=== PATIENT | male | born 1940 | race Caucasian/White ===

== ENCOUNTER 2020-11-24 16:51 | Inpatient (IN) | payer MEDICARE, OTHER ==
[~2020-11-24] VITALS: Ht 177.8 cm; Wt 90.9 kg
[~2020-11-24 16:51] MED LIST: ASPI81TA52 PO; ESOM20CA PO; LEXAPRO; MULTIVIT; NAP220T PO; ST JOHNS WART; VIT D
[2020-11-24 19:26] LABS: BASOPHILS % (AUTO) 0.2 % (0-1); EOSINOPHILS % (AUTO) 0 % (0-6); HEMATOCRIT 40.5 % (42.0-52.0); HEMOGLOBIN 13.5 g/dl (14.0-17.9); LYMPHOCYTES # (AUTO) 0.8 X10'3 (1.1-4.8); LYMPHOCYTES % (AUTO) 7.5 % (21-51); MEAN CORPUSCULAR HGB CONC 33.4 g/dL (33.0-36.5); MEAN PLATELET VOLUME 8.7 FL (7.4-10.4); MONOCYTES # (AUTO) 0.7 X10'3 (0-0.9); MONOCYTES % (AUTO) 6.6 % (2-12); NEUTROPHILS # (AUTO) 8.8 X10'3 (1.8-7.7); NEUTROPHILS % (AUTO) 85.7 % (42-75); PLATELET COUNT 170 X10'3 (140-440); RED CELL DISTRIBUTION WIDTH 17.2 % (11.5-14.5); WHITE BLOOD COUNT 10.3 X10'3 (4.5-11.0)
--- NOTE | 2020-11-24 19:37 | NUR ---
pt has had a ct resulted and Vrad rediologist calling to speak with provider. Pt not yet in room and no provider has signed up for him. Dr. Tavera taking call.
[2020-11-24] MEDS ORDERED: normal saline 1000ml 1,000 ML IV ONE (19:45)
[2020-11-24 19:46] LABS: ALANINE AMINOTRANSFERASE 25 U/L (12-78); ALBUMIN 4.1 G/DL (3.4-5.0); ALBUMIN/GLOBULIN RATIO 1.1 (1.1-1.5); ALKALINE PHOSPHATASE 112 IU/L (46-116); ANION GAP 11 (8-16); ASPARTATE AMINO TRANSFERASE 22 U/L (10-37); BILIRUBIN,TOTAL 1.3 MG/DL (0.1-1.0); BLOOD UREA NITROGEN 17 MG/DL (7-18); BUN/CREATININE RATIO 13.2 (5.4-32.0); CHLORIDE 106 MMOL/L (99-107); CREATININE 1.29 MG/DL (0.60-1.10); GLUCOSE 150 MG/DL (70-104); LIPASE 71 U/L (73-393); POTASSIUM 3.6 MMOL/L (3.5-5.1); SODIUM 142 MMOL/L (135-145); TOTAL CARBON DIOXIDE 24.8 MMOL/L (24-32); TOTAL PROTEIN 7.8 G/DL (6.4-8.2); eGFR 54 ML/MIN
[2020-11-24 19:56] LABS: PARTIAL THROMBOPLASTIN TIME 25 SECONDS (22-32)
[2020-11-24] MEDS ORDERED: morphine 2 MG/ML inj. syringe IV PRN ×2 (21:40)
[2020-11-24] MEDS ORDERED: HYDROcodone/acetaminophen 10/325mg tab PO PRN (21:40)
[2020-11-24] MEDS ORDERED: ondansetron/PF 4mg/2ml inj IV PRN (21:40)
[2020-11-24] MEDS ORDERED: acetaminophen 325mg tablet PO PRN ×2 (21:40)
[2020-11-24] MEDS ORDERED: HYDROcodone/acetaminophen 5mg/325mg tablet PO PRN (21:40)
[2020-11-24] MEDS ORDERED: LOSA100T57 PO (21:57)
[2020-11-24] MEDS ORDERED: APIX5TAB3 PO (21:57)
[2020-11-24] MEDS ORDERED: SOTA80TA73 PO (21:57)
[2020-11-24] MEDS ORDERED: AMLO5TAB16 PO (21:57)
[2020-11-24] MEDS ORDERED: ESOM20CA PO (22:05)
[2020-11-24 23:35] LABS: CLARITY,URINE CLEAR (Clear); COLOR,URINE AMBER (Yellow); PH,URINE 5.5 (4.8-8.0); UA COLLECTION TYPE URINAL
[2020-11-24 23:36] LABS: GLUCOSE, URINE NEGATIVE (Neg); KETONES,URINE 80 mg/dl (Neg); LEUKOCYTE ESTERASE ,URINE NEGATIVE (Neg); NITRITES, URINE NEGATIVE (Neg); OCCULT BLOOD,URINE NEGATIVE (Neg); PROTEIN,URINE 30 mg/dl (Neg); UROBILINOGEN,URINE 0.2 E.U/dL (0.2-1.0)
[2020-11-24 23:44] LABS: BACTERIA,URINE NONE SEEN /HPF (Neg); MUCUS STRANDS FEW /LPF (Neg); RBC,URINE NONE SEEN /HPF (0-2); SQUAMOUS EPITHELIAL CELL,UR FEW /LPF (FEW); WBC,URINE 0-4 /HPF (0-4)
[2020-11-25] MEDS: normal saline 1000ml 1,000 ML IV SCH ×3 (00:32→19:30)
[2020-11-25 03:46] LABS: ALANINE AMINOTRANSFERASE 24 U/L (12-78); ALBUMIN 3.5 G/DL (3.4-5.0); ALBUMIN/GLOBULIN RATIO 1.1 (1.1-1.5); ALKALINE PHOSPHATASE 95 IU/L (46-116); ANION GAP 12 (8-16); ASPARTATE AMINO TRANSFERASE 23 U/L (10-37); BILIRUBIN,TOTAL 1.2 MG/DL (0.1-1.0); BLOOD UREA NITROGEN 19 MG/DL (7-18); CALCIUM 9.1 MG/DL (8.5-10.1); CHLORIDE 107 MMOL/L (99-107); CREATININE 1.12 MG/DL (0.60-1.10); GLUCOSE 135 MG/DL (70-104); POTASSIUM 4.2 MMOL/L (3.5-5.1); SODIUM 143 MMOL/L (135-145); TOTAL CARBON DIOXIDE 24.5 MMOL/L (24-32); TOTAL PROTEIN 6.8 G/DL (6.4-8.2); eGFR 63 ML/MIN
[2020-11-25 03:47] LABS: BASOPHILS % (AUTO) 0.2 % (0-1); EOSINOPHILS % (AUTO) 0 % (0-6); HEMATOCRIT 40.3 % (42.0-52.0); HEMOGLOBIN 12.8 g/dl (14.0-17.9); LYMPHOCYTES # (AUTO) 1.2 X10'3 (1.1-4.8); LYMPHOCYTES % (AUTO) 12.5 % (21-51); MEAN CORPUSCULAR HEMOGLOBIN 26.6 PG (27.0-31.0); MEAN CORPUSCULAR HGB CONC 31.8 g/dL (33.0-36.5); MEAN CORPUSCULAR VOLUME 83.8 FL (78-98); MEAN PLATELET VOLUME 9.3 FL (7.4-10.4); MONOCYTES # (AUTO) 0.7 X10'3 (0-0.9); MONOCYTES % (AUTO) 7.5 % (2-12); NEUTROPHILS # (AUTO) 7.3 X10'3 (1.8-7.7); NEUTROPHILS % (AUTO) 79.8 % (42-75); PLATELET COUNT 165 X10'3 (140-440); RED CELL DISTRIBUTION WIDTH 17.1 % (11.5-14.5); WHITE BLOOD COUNT 9.2 X10'3 (4.5-11.0)
[2020-11-25] MEDS ORDERED: ciprofloxacin lact 400MG/200ML 200 ML IV SCH (08:00)
[2020-11-25] MEDS ORDERED: apixaban 5mg tablet PO SCH (08:00)
[2020-11-25] MEDS ORDERED: heparin, porcine 5000 units/ml vial SQ SCH (08:00)
[2020-11-25] MEDS ORDERED: metroNIDAZOLE-Flagyl 500mg/NS 100 ML IV SCH (08:00)
[2020-11-25] MEDS: sotalol 80mg tablet PO SCH ×2 (09:35→20:08)
[2020-11-25] MEDS: pantoprazole 40mg Tablet.DR PO SCH (09:36)
[2020-11-25] MEDS: amLODIPine 5mg tablet PO SCH (09:36)
[2020-11-25] MEDS: losartan 50mg tablet PO SCH (09:50)
[2020-11-25 10:35] VITALS: BP 147/79
--- NOTE | 2020-11-25 10:35 | NUR ---
PATIENT RECIEVED FROM ER, A&OX4, DENIES PAIN, V/S WNL, CSM INTACT NG TO LEFT NARES HOOKS TO INTERMITTENT LWS. RIGHT AC 20G PIV
[2020-11-25] MEDS ORDERED: diatrozoate meglu/diatrozoate sod (37% iodine) 120ML oral solution PO ONE (12:10)
--- NOTE | 2020-11-25 12:56 | NUR ---
PATIENT HAD MODERATE LIQUID STOOL WITH SOME SMALLER SOLID CHUNKS WITH NO ABNORMAL DISCOLORATION
[2020-11-25 13:38] VITALS: BP 152/73
--- NOTE | 2020-11-25 16:11 | NUR ---
ANOTHER SUCCESS! THE PATIENT HAS POOPED ! YEAH. IT WAS A LOOSE MIX WITH FIRM STOOL LIKE ALPO DOG FOOD. Addendum: 11/25/20 at 1621 by Tobin Leonard RN VOID PREVIOUS NOTE, STOOL WAS MODERATE LOOSE MIX STOOL
--- NOTE | 2020-11-25 16:43 | NUR ---
PATIENT HAD ANOTHER POOP SIMILAR TO LAST POOP WITH SAME CONSISTENCY W/ DARK BROWN
[2020-11-25 17:23] VITALS: BP 141/78
--- NOTE | 2020-11-25 17:25 | NUR ---
PATIENT XRAY COMPLETED
--- NOTE | 2020-11-25 18:40 | NUR ---
PATIENT SURGERY CANCELLED, REPORT CALLED TO TELE. NG TUBE D/C PER DR HILL VERBAL ORDER. PATIENT DOING WELL, V/S STABLE. PATIENT TAKEN TO PCU WITH ALL BELONGINGS AND RN HAS TAKEN OVER PATIENT CARE.
[2020-11-25 19:00] VITALS: BP 146/74
--- NOTE | 2020-11-25 19:05 | NUR ---
REPORT GIVEN TO RENETTA ULRICH ON PCU. ALL QUESTIONS ANSWERED. PRESENT TO ACCEPT CARE AND ASSESS PATIENT. VSS. DENIES PAIN- ONE BAG OF BELONGINGS SENT WITH PATIENT AND PLACED IN CLOSET OF 3026B BY RENETTA ULRICH. CARE SAFELY TURNED OVER TO RENETTA ULRICH. Addendum: 11/25/20 at 1906 by Brando Whitfield - RENETTA JACKSON Amended: Links added.
--- NOTE | 2020-11-25 19:05 | NUR ---
CARE TURNED OVER TO RENETTA ULRICH. ALL VSS. REPORT CALLED AND ALL QUESTIONS ANSWERED. VSS. DENIES PAIN. AMBULATING WITHOUT INCIDENT. STILL HAVING SMALL BMS. CARE TURNED OVER Addendum: 11/25/20 at 1907 by Brando Whitfield - RENETTA JACKSON Amended: Links added.
[2020-11-25 22:00] VITALS: BP 141/79
[2020-11-26 02:00] VITALS: BP 134/66
[2020-11-26] MEDS: normal saline 1000ml 1,000 ML IV SCH ×2 (03:40→05:44)
[2020-11-26 06:00] VITALS: BP 127/65
[2020-11-26 06:01] LABS: BASOPHILS % (AUTO) 0.6 % (0-1); EOSINOPHILS # (AUTO) 0.1 X10'3 (0-0.9); EOSINOPHILS % (AUTO) 2.4 % (0-6); HEMOGLOBIN 11.4 g/dl (14.0-17.9); LYMPHOCYTES # (AUTO) 1.5 X10'3 (1.1-4.8); LYMPHOCYTES % (AUTO) 24.8 % (21-51); MEAN CORPUSCULAR HEMOGLOBIN 27.3 PG (27.0-31.0); MEAN CORPUSCULAR HGB CONC 32.6 g/dL (33.0-36.5); MEAN CORPUSCULAR VOLUME 83.7 FL (78-98); MEAN PLATELET VOLUME 9.2 FL (7.4-10.4); MONOCYTES # (AUTO) 0.6 X10'3 (0-0.9); MONOCYTES % (AUTO) 9.9 % (2-12); NEUTROPHILS # (AUTO) 3.8 X10'3 (1.8-7.7); NEUTROPHILS % (AUTO) 62.3 % (42-75); PLATELET COUNT 130 X10'3 (140-440); RED BLOOD COUNT 4.19 X10'6 (4.70-6.10); RED CELL DISTRIBUTION WIDTH 17.4 % (11.5-14.5); WHITE BLOOD COUNT 6.1 X10'3 (4.5-11.0)
[2020-11-26 06:20] LABS: ALANINE AMINOTRANSFERASE 17 U/L (12-78); ALBUMIN 2.8 G/DL (3.4-5.0); ALKALINE PHOSPHATASE 80 IU/L (46-116); ANION GAP 7 (8-16); ASPARTATE AMINO TRANSFERASE 19 U/L (10-37); BILIRUBIN,TOTAL 0.8 MG/DL (0.1-1.0); BLOOD UREA NITROGEN 14 MG/DL (7-18); BUN/CREATININE RATIO 14.9 (5.4-32.0); CALCIUM 7.5 MG/DL (8.5-10.1); CHLORIDE 113 MMOL/L (99-107); CREATININE 0.94 MG/DL (0.60-1.10); GLUCOSE 74 MG/DL (70-104); POTASSIUM 3.5 MMOL/L (3.5-5.1); SODIUM 144 MMOL/L (135-145); TOTAL CARBON DIOXIDE 24.2 MMOL/L (24-32); TOTAL PROTEIN 5.6 G/DL (6.4-8.2); eGFR 77 ML/MIN
--- NOTE | 2020-11-26 06:25 | NUR ---
Patient in room PCU 3026. I have received report from sawyer rn and had the opportunity to ask questions and assume patient care.
[2020-11-26] MEDS: losartan 50mg tablet PO SCH (07:12)
[2020-11-26] MEDS: amLODIPine 5mg tablet PO SCH (07:13)
[2020-11-26] MEDS: sotalol 80mg tablet PO SCH (07:13)
[2020-11-26] MEDS: pantoprazole 40mg Tablet.DR PO SCH (07:13)
[2020-11-26 11:12] VITALS: BP 126/65
--- NOTE | 2020-11-26 13:33 | NUR ---
Patient discharged at 1315. Belongings sent with patient, iv removed, no complications. Pt wheeled down to entrance via wheelchair. Pt discharged in stable condition to home via private vehicle.
== END 2020-11-26 13:15 | disposition home or self-care (01) | DRG 389 ==
LOC: ER 16:51 → ED HOLD 21:42 → PCU 3S 11-25 19:00
PROVIDERS: ADMIT Internal Medicine; ATTEND Family Medicine
PROC: 0D9670Z Drainage of Stomach with Drainage Device, Via Natural or Artificial Opening (ICD-10-PCS; principal; 2020-11-24)
DX: K56.609 Unspecified intestinal obstruction, unspecified as to partial versus complete obstruction (principal); I48.20 Chronic atrial fibrillation, unspecified; N17.9 Acute kidney failure, unspecified; K21.9 Gastro-esophageal reflux disease without esophagitis; K59.00 Constipation, unspecified; Z20.822 Contact with and (suspected) exposure to COVID-19; E80.7 Disorder of bilirubin metabolism, unspecified; N18.30 Chronic kidney disease, stage 3 unspecified; I12.9 Hypertensive chronic kidney disease with stage 1 through stage 4 chronic kidney disease, or unspecified chronic kidney disease; Z87.891 Personal history of nicotine dependence; Z90.79 Acquired absence of other genital organ(s)
CPT/HCPCS: 36415; 74018; 74176; 80053; 81001; 83605; 83690; 85025; 85610; 85730; 87040; 87081; 87635; 93005; 97116; 97161; 97530; 99285; G0378; J0744; J3490; J7030; Q9963

== ENCOUNTER 2021-04-28 05:36 | Emergency (ER) | payer MEDICARE, OTHER ==
[~2021-04-28] VITALS: Ht 170.2 cm; Wt 90.9 kg
[~2021-04-28 05:36] MED LIST changes: +AMLO5TAB16 PO; +APIX5TAB3 PO; -ASPI81TA52 PO; -LEXAPRO; +LOSA100T57 PO; -MULTIVIT; -NAP220T PO; +SOTA80TA73 PO; -ST JOHNS WART; -VIT D
[2021-04-28 05:42] VITALS: BP 160/84
== END 2021-04-28 06:30 | disposition home or self-care (01) ==
LOC: ER 05:37
DX: N50.1 Vascular disorders of male genital organs (principal); I10 Essential (primary) hypertension; Z79.899 Other long term (current) drug therapy
CPT/HCPCS: 99281

== ENCOUNTER 2023-12-27 20:28 | Inpatient (IN) | payer MEDICARE, OTHER ==
[~2023-12-27] VITALS: Ht 170.2 cm; Wt 92.5 kg
[~2023-12-27 20:28] MED LIST changes: -LOSA100T57 PO; +LOSA100T58 PO
[2023-12-27 20:56] LABS: BASOPHILS # (AUTO) 0.1 X10'3 (0-0.2); BASOPHILS % (AUTO) 0.4 % (0-1); EOSINOPHILS # (AUTO) 0.1 X10'3 (0-0.9); EOSINOPHILS % (AUTO) 0.8 % (0-6); HEMATOCRIT 48.5 % (42.0-52.0); HEMOGLOBIN 16.5 g/dl (14.0-17.9); LYMPHOCYTES # (AUTO) 1.3 X10'3 (1.1-4.8); LYMPHOCYTES % (AUTO) 11.4 % (21-51); MEAN CORPUSCULAR HEMOGLOBIN 32.8 PG (27.0-31.0); MEAN CORPUSCULAR VOLUME 96.5 FL (78-98); MEAN PLATELET VOLUME 8.9 FL (7.4-10.4); MONOCYTES # (AUTO) 0.7 X10'3 (0-0.9); MONOCYTES % (AUTO) 6.4 % (2-12); NEUTROPHILS # (AUTO) 9.3 X10'3 (1.8-7.7); PLATELET COUNT 141 X10'3 (140-440); RED BLOOD COUNT 5.03 X10'6 (4.70-6.10); RED CELL DISTRIBUTION WIDTH 13.4 % (11.5-14.5); WHITE BLOOD COUNT 11.5 X10'3 (4.5-11.0)
[2023-12-27 21:13] LABS: ALANINE AMINOTRANSFERASE 24 U/L (12-78); ALBUMIN 3.8 G/DL (3.4-5.0); ALBUMIN/GLOBULIN RATIO 1.1 (1.1-1.5); ALKALINE PHOSPHATASE 94 IU/L (46-116); ANION GAP 6 (8-16); ASPARTATE AMINO TRANSFERASE 20 U/L (10-37); BLOOD UREA NITROGEN 16 MG/DL (7-18); BUN/CREATININE RATIO 16.7 (10.0-20.0); CALCIUM 9.7 MG/DL (8.5-10.1); CHLORIDE 104 MMOL/L (99-107); CREATININE 0.96 MG/DL (0.60-1.10); GLUCOSE 146 MG/DL (70-104); POTASSIUM 3.7 MMOL/L (3.5-5.1); SODIUM 137 MMOL/L (135-145); TOTAL CARBON DIOXIDE 26.6 MMOL/L (24-32); TOTAL PROTEIN 7.4 G/DL (6.4-8.2); eCRCL 55 ML/MIN; eGFR 75 ML/MIN
[2023-12-27 21:19] LABS: LIPASE 26 U/L (16-77); PRO BRAIN NATRIURETIC PEPTIDE 122 PG/ML (0-450)
[2023-12-27] MEDS: ondansetron/PF 4mg/2ml inj IV ONE (22:15)
[2023-12-27] MEDS: morphine 4 MG/ML inj SYRINge IV ONE (22:16)
[2023-12-27] MEDS: normal saline 1000ml 1,000 ML IV ONE (22:16)
[2023-12-28] VITALS (8 sets, daily range): BP systolic 140–161; BP diastolic 75–87; PULSE 72–89; RESP 16–18; TEMP 97.5–98.8; O2SAT 91–96
[2023-12-28 00:04] LABS: BILIRUBIN,URINE NEGATIVE (Neg); CLARITY,URINE CLEAR (Clear); COLOR,URINE YELLOW (Yellow); GLUCOSE, URINE NEGATIVE (Neg); KETONES,URINE 40 mg/dl (Neg); LEUKOCYTE ESTERASE ,URINE NEGATIVE (Neg); NITRITES, URINE NEGATIVE (Neg); OCCULT BLOOD,URINE TRACE-INTACT (Neg); PH,URINE 6.5 (4.8-8.0); PROTEIN,URINE NEGATIVE (Neg)
[2023-12-28 00:05] LABS: UA COLLECTION TYPE CLN CATCH MIDSTREAM
[2023-12-28] MEDS ORDERED: magnesium Cl slow-release 64mg tablet PO PRN (00:20)
[2023-12-28] MEDS ORDERED: mag hydrox/Alum hydrox/simeth 30ml oral suspension PO PRN (00:20)
[2023-12-28] MEDS ORDERED: magnesium hydroxide 30ml (MOM) UD suspension PO PRN (00:20)
[2023-12-28] MEDS ORDERED: acetaminophen 325mg tablet PO PRN (00:20)
[2023-12-28] MEDS ORDERED: magnesium sulf-water 4G/100mL 100 ML IV PRN (00:20)
[2023-12-28] MEDS ORDERED: potassium Cl 20 mEq SR tablet PO PRN ×2 (00:20)
[2023-12-28] MEDS ORDERED: ondansetron/PF 4mg/2ml inj IV PRN (00:20)
[2023-12-28] MEDS ORDERED: magnesium sulf-water 2g/50mL 50 ML IV PRN (00:20)
[2023-12-28 00:22] LABS: BACTERIA,URINE NONE SEEN /HPF (Neg); MUCUS STRANDS FEW /LPF (Neg); RBC,URINE 0-2 /HPF (0-2); SQUAMOUS EPITHELIAL CELL,UR FEW /LPF (FEW); WBC,URINE 0-4 /HPF (0-4)
[2023-12-28] MEDS ORDERED: ketorolac trometh 15mg/ml vial 15 MG/ML ML IV PRN (00:35)
[2023-12-28] MEDS: hydrALAZINE 20mg/ml inj. IV ONE (01:10)
[2023-12-28] MEDS: CefTRIAXone/D5W-Rocephin 1gm 50 ML IV ONE (01:50)
[2023-12-28 01:51] LABS: APTT 24 SECONDS (22-32); INR 1.1 INR; PROTHROMBIN TIME 11.2 SECONDS (9.0-12.0)
[2023-12-28 01:53] LABS: MAGNESIUM 1.8 MG/DL (1.5-2.4); PHOSPHORUS 2.9 MG/DL (2.3-4.5); POTASSIUM 4.2 MMOL/L (3.5-5.1)
[2023-12-28 02:09] LABS: HEMOGLOBIN A1C 5.3 % (4.5-6.2)
[2023-12-28] MEDS: normal saline 1000ml 1,000 ML IV SCH (03:26)
[2023-12-28] MEDS: K and/or MAG REPLACEMENT MC SCH (08:00)
[2023-12-28] MEDS: docusate sod 100mg capsule PO SCH (08:00)
[2023-12-28] MEDS: pantoprazole 40 MG vial IV SCH (08:26)
[2023-12-28] MEDS: CefTRIAXone/D5W-Rocephin 1gm 50 ML IV SCH (10:37)
[2023-12-28 13:19] LABS: BASOPHILS # (AUTO) 0.1 X10'3 (0-0.2); BASOPHILS % (AUTO) 1.1 % (0-1); EOSINOPHILS % (AUTO) 0.2 % (0-6); HEMOGLOBIN 15.9 g/dl (14.0-17.9); LYMPHOCYTES % (AUTO) 9.8 % (21-51); MEAN CORPUSCULAR HEMOGLOBIN 33.3 PG (27.0-31.0); MEAN CORPUSCULAR HGB CONC 33.9 g/dL (33.0-36.5); MEAN CORPUSCULAR VOLUME 98.2 FL (78-98); MEAN PLATELET VOLUME 10.1 FL (7.4-10.4); MONOCYTES # (AUTO) 0.6 X10'3 (0-0.9); MONOCYTES % (AUTO) 6.4 % (2-12); NEUTROPHILS # (AUTO) 8.1 X10'3 (1.8-7.7); NEUTROPHILS % (AUTO) 82.5 % (42-75); PLATELET COUNT 130 X10'3 (140-440); RED BLOOD COUNT 4.78 X10'6 (4.70-6.10); RED CELL DISTRIBUTION WIDTH 13.6 % (11.5-14.5); WHITE BLOOD COUNT 9.9 X10'3 (4.5-11.0)
[2023-12-28 13:31] LABS: ALANINE AMINOTRANSFERASE 24 U/L (12-78); ALBUMIN 3.3 G/DL (3.4-5.0); ALKALINE PHOSPHATASE 84 IU/L (46-116); ANION GAP 8 (8-16); ASPARTATE AMINO TRANSFERASE 26 U/L (10-37); BLOOD UREA NITROGEN 14 MG/DL (7-18); BUN/CREATININE RATIO 17.9 (10.0-20.0); CALCIUM 8.9 MG/DL (8.5-10.1); CHLORIDE 106 MMOL/L (99-107); CREATININE 0.78 MG/DL (0.60-1.10); GLUCOSE 121 MG/DL (70-104); POTASSIUM 3.9 MMOL/L (3.5-5.1); SODIUM 138 MMOL/L (135-145); TOTAL CARBON DIOXIDE 24.2 MMOL/L (24-32); TOTAL PROTEIN 6.5 G/DL (6.4-8.2); eCRCL 68 ML/MIN; eGFR > 90 ML/MIN
[2023-12-28 13:56] LABS: LARGE PLATELETS FEW; PLATELET ESTIMATE DECREASED
[2023-12-28 13:58] LABS: GIANT PLATELET FEW
[2023-12-28] MEDS: apixaban 5mg tablet PO SCH (20:18)
[2023-12-28] MEDS: sotalol HCl 40mg (1/2 tablet) PO SCH (20:19)
[2023-12-28] MEDS ORDERED: HYDROcodone/acetaminophen 5mg/325mg tablet PO PRN (20:30)
[2023-12-28] MEDS: bisacodyl 10mg suppository rectal RC STA (21:58)
[2023-12-29 04:51] LABS: BASOPHILS % (AUTO) 0.5 % (0-1); EOSINOPHILS # (AUTO) 0.1 X10'3 (0-0.9); EOSINOPHILS % (AUTO) 1.8 % (0-6); LYMPHOCYTES # (AUTO) 1.5 X10'3 (1.1-4.8); LYMPHOCYTES % (AUTO) 21.6 % (21-51); MEAN CORPUSCULAR HEMOGLOBIN 33.3 PG (27.0-31.0); MEAN CORPUSCULAR HGB CONC 34.2 g/dL (33.0-36.5); MEAN CORPUSCULAR VOLUME 97.4 FL (78-98); MONOCYTES # (AUTO) 0.7 X10'3 (0-0.9); MONOCYTES % (AUTO) 9.8 % (2-12); NEUTROPHILS # (AUTO) 4.5 X10'3 (1.8-7.7); NEUTROPHILS % (AUTO) 66.3 % (42-75); PLATELET COUNT 117 X10'3 (140-440); RED BLOOD COUNT 4.51 X10'6 (4.70-6.10); RED CELL DISTRIBUTION WIDTH 13.4 % (11.5-14.5); WHITE BLOOD COUNT 6.8 X10'3 (4.5-11.0)
[2023-12-29 05:03] LABS: ALANINE AMINOTRANSFERASE 20 U/L (12-78); ALBUMIN 2.7 G/DL (3.4-5.0); ALBUMIN/GLOBULIN RATIO 0.9 (1.1-1.5); ALKALINE PHOSPHATASE 76 IU/L (46-116); ANION GAP 6 (8-16); ASPARTATE AMINO TRANSFERASE 21 U/L (10-37); BILIRUBIN,TOTAL 1.5 MG/DL (0.1-1.0); BLOOD UREA NITROGEN 8 MG/DL (7-18); BUN/CREATININE RATIO 10.1 (10.0-20.0); CALCIUM 8.2 MG/DL (8.5-10.1); CHLORIDE 109 MMOL/L (99-107); CREATININE 0.79 MG/DL (0.60-1.10); GLUCOSE 90 MG/DL (70-104); POTASSIUM 3.6 MMOL/L (3.5-5.1); SODIUM 139 MMOL/L (135-145); TOTAL CARBON DIOXIDE 24.3 MMOL/L (24-32); TOTAL PROTEIN 5.7 G/DL (6.4-8.2); eCRCL 67 ML/MIN; eGFR > 90 ML/MIN
[2023-12-29 08:00] VITALS: RESP 18; O2SAT 95
[2023-12-29] MEDS: pantoprazole 40mg Tablet.DR PO SCH (08:39)
[2023-12-29] MEDS: losartan 50mg tablet PO SCH (08:40)
[2023-12-29] MEDS: amLODIPine 5mg tablet PO SCH (08:40)
[2023-12-29 11:00] VITALS: BP 169/87; PULSE 64; RESP 16; TEMP 98.4; O2SAT 94
[2023-12-29 18:00] VITALS: BP 157/84; PULSE 81; RESP 17; TEMP 99.3; O2SAT 95
[2023-12-29 20:00] VITALS: RESP 17; O2SAT 95
[2023-12-29] MEDS: diatr meglu/diatrizoate 30ml oral sol.-(3 dose) bottle PO SCH (21:07)
[2023-12-29 22:00] VITALS: BP 102/63; PULSE 61; RESP 16; TEMP 97.7; O2SAT 94
[2023-12-30 05:22] LABS: ALANINE AMINOTRANSFERASE 16 U/L (12-78); ALBUMIN 2.7 G/DL (3.4-5.0); ALBUMIN/GLOBULIN RATIO 0.9 (1.1-1.5); ALKALINE PHOSPHATASE 71 IU/L (46-116); ANION GAP 8 (8-16); ASPARTATE AMINO TRANSFERASE 18 U/L (10-37); BILIRUBIN,TOTAL 1.3 MG/DL (0.1-1.0); BLOOD UREA NITROGEN 7 MG/DL (7-18); BUN/CREATININE RATIO 8.6 (10.0-20.0); CALCIUM 8.1 MG/DL (8.5-10.1); CHLORIDE 107 MMOL/L (99-107); CREATININE 0.81 MG/DL (0.60-1.10); GLUCOSE 74 MG/DL (70-104); POTASSIUM 3.3 MMOL/L (3.5-5.1); SODIUM 138 MMOL/L (135-145); TOTAL CARBON DIOXIDE 23.3 MMOL/L (24-32); TOTAL PROTEIN 5.8 G/DL (6.4-8.2); eCRCL 66 ML/MIN; eGFR > 90 ML/MIN
[2023-12-30 05:28] LABS: BASOPHILS % (AUTO) 0.5 % (0-1); EOSINOPHILS # (AUTO) 0.2 X10'3 (0-0.9); EOSINOPHILS % (AUTO) 2.7 % (0-6); HEMATOCRIT 44.9 % (42.0-52.0); HEMOGLOBIN 15.1 g/dl (14.0-17.9); LYMPHOCYTES # (AUTO) 1.4 X10'3 (1.1-4.8); LYMPHOCYTES % (AUTO) 22.2 % (21-51); MEAN CORPUSCULAR HEMOGLOBIN 32.6 PG (27.0-31.0); MEAN CORPUSCULAR HGB CONC 33.7 g/dL (33.0-36.5); MEAN CORPUSCULAR VOLUME 96.7 FL (78-98); MEAN PLATELET VOLUME 9.5 FL (7.4-10.4); MONOCYTES # (AUTO) 0.6 X10'3 (0-0.9); MONOCYTES % (AUTO) 10.3 % (2-12); NEUTROPHILS % (AUTO) 64.3 % (42-75); PLATELET COUNT 112 X10'3 (140-440); RED BLOOD COUNT 4.64 X10'6 (4.70-6.10); RED CELL DISTRIBUTION WIDTH 13.1 % (11.5-14.5); WHITE BLOOD COUNT 6.2 X10'3 (4.5-11.0)
[2023-12-30 06:00] VITALS: BP 129/73; PULSE 65; RESP 15; TEMP 97.4; O2SAT 96
[2023-12-30] MEDS: enoxaparin 40mg/0.4ml syringe SUBCUT SCH (08:01)
[2023-12-30 09:15] VITALS: RESP 18; O2SAT 96
[2023-12-30 10:00] VITALS: BP 157/68; PULSE 62; RESP 15; TEMP 98.4; O2SAT 96
[2023-12-30] MEDS: potassium Cl 40MEQ/1/2NS 520ml 520 ML IV PRN (10:13)
[2023-12-30 18:00] VITALS: BP 118/79; PULSE 72; RESP 15; TEMP 97.7; O2SAT 96
[2023-12-30 20:00] VITALS: RESP 20; O2SAT 95
[2023-12-30 22:00] VITALS: BP 136/56; PULSE 58; RESP 20; TEMP 97.6; O2SAT 94
[2023-12-31 06:00] VITALS: BP 123/75; PULSE 71; RESP 16; TEMP 97.5; O2SAT 95
[2023-12-31 06:46] LABS: ALANINE AMINOTRANSFERASE 20 U/L (12-78); ALBUMIN 2.6 G/DL (3.4-5.0); ALBUMIN/GLOBULIN RATIO 0.9 (1.1-1.5); ALKALINE PHOSPHATASE 75 IU/L (46-116); ANION GAP 8 (8-16); ASPARTATE AMINO TRANSFERASE 25 U/L (10-37); BILIRUBIN,TOTAL 1.1 MG/DL (0.1-1.0); BLOOD UREA NITROGEN 7 MG/DL (7-18); BUN/CREATININE RATIO 8.6 (10.0-20.0); CALCIUM 8.5 MG/DL (8.5-10.1); CHLORIDE 107 MMOL/L (99-107); CREATININE 0.81 MG/DL (0.60-1.10); GLUCOSE 72 MG/DL (70-104); POTASSIUM 3.4 MMOL/L (3.5-5.1); SODIUM 139 MMOL/L (135-145); TOTAL CARBON DIOXIDE 24.5 MMOL/L (24-32); TOTAL PROTEIN 5.6 G/DL (6.4-8.2); eCRCL 66 ML/MIN; eGFR > 90 ML/MIN
[2023-12-31 06:51] LABS: BASOPHILS % (AUTO) 0.7 % (0-1); EOSINOPHILS # (AUTO) 0.2 X10'3 (0-0.9); EOSINOPHILS % (AUTO) 3.2 % (0-6); HEMATOCRIT 43.5 % (42.0-52.0); HEMOGLOBIN 14.9 g/dl (14.0-17.9); LYMPHOCYTES # (AUTO) 1.2 X10'3 (1.1-4.8); LYMPHOCYTES % (AUTO) 24.1 % (21-51); MEAN CORPUSCULAR HEMOGLOBIN 33.1 PG (27.0-31.0); MEAN CORPUSCULAR HGB CONC 34.3 g/dL (33.0-36.5); MEAN CORPUSCULAR VOLUME 96.7 FL (78-98); MEAN PLATELET VOLUME 9.5 FL (7.4-10.4); MONOCYTES # (AUTO) 0.6 X10'3 (0-0.9); MONOCYTES % (AUTO) 11.4 % (2-12); NEUTROPHILS % (AUTO) 60.6 % (42-75); PLATELET COUNT 113 X10'3 (140-440); RED CELL DISTRIBUTION WIDTH 13.2 % (11.5-14.5); WHITE BLOOD COUNT 4.9 X10'3 (4.5-11.0)
[2023-12-31 08:00] VITALS: RESP 16; O2SAT 92
[2023-12-31] MEDS ORDERED: magnesium sulf-water 4G/100mL 100 ML IV PRN (08:35)
[2023-12-31] MEDS ORDERED: magnesium sulf-water 2g/50mL 50 ML IV PRN (08:35)
[2023-12-31] MEDS ORDERED: potassium Cl 40MEQ/270ML bag 250 ML IV PRN (08:35)
[2023-12-31] MEDS ORDERED: potassium Cl 20mEq/100mL bag 100 ML IV PRN (08:35)
[2023-12-31 08:46] VITALS: BP_SYST 136; PULSE 53
[2023-12-31] MEDS: potassium Cl 20 mEq SR tablet PO PRN (08:48)
[2023-12-31] MEDS ORDERED: POTA-207 PO (12:15)
== END 2023-12-31 14:00 | disposition home or self-care (01) | DRG 390 ==
LOC: ER 20:29 → ED HOLD 12-28 00:27 → EDBEDREQ 12-28 01:14 → SUR 3N 12-28 01:30
PROVIDERS: ADMIT Internal Medicine Critical Care Medicine; ATTEND Internal Medicine
PROC: 0D9670Z Drainage of Stomach with Drainage Device, Via Natural or Artificial Opening (ICD-10-PCS; principal; 2023-12-28)
DX: K56.609 Unspecified intestinal obstruction, unspecified as to partial versus complete obstruction (principal); I16.0 Hypertensive urgency; I10 Essential (primary) hypertension; K57.30 Diverticulosis of large intestine without perforation or abscess without bleeding; I48.91 Unspecified atrial fibrillation; K21.9 Gastro-esophageal reflux disease without esophagitis; K66.0 Peritoneal adhesions (postprocedural) (postinfection); E87.6 Hypokalemia; K44.9 Diaphragmatic hernia without obstruction or gangrene; Z79.01 Long term (current) use of anticoagulants; Z79.899 Other long term (current) drug therapy; K56.7 Ileus, unspecified
CPT/HCPCS: 36415; 71045; 74018; 74176; 80053; 81001; 81003; 82948; 83036; 83605; 83690; 83735; 83880; 84100; 84132; 84145; 84484; 85008; 85025; 85610; 85730; 87040; 87081; 93005; 96374; 96375; 97161; 97530; 99285; A6258; A6449; G0378; J0360; J0696; J1650; J2270; J2405; J2470; J3480; J7030; J7042; Q9963

== ENCOUNTER 2024-01-07 12:29 | Outpatient (CLI) | payer MEDICARE, OTHER ==
[~2024-01-07 12:29] MED LIST changes: +POTA-207 PO
[2024-01-07 12:58] LABS: ALBUMIN 3.4 G/DL (3.4-5.0); ANION GAP 6 (8-16); BLOOD UREA NITROGEN 16 MG/DL (7-18); BUN/CREATININE RATIO 15.5 (10.0-20.0); CALCIUM 9.2 MG/DL (8.5-10.1); CHLORIDE 105 MMOL/L (99-107); CREATININE 1.03 MG/DL (0.60-1.10); GLUCOSE 101 MG/DL (70-104); POTASSIUM 4.5 MMOL/L (3.5-5.1); SODIUM 139 MMOL/L (135-145); TOTAL CARBON DIOXIDE 28.1 MMOL/L (24-32); eGFR 69 ML/MIN
== END 2024-01-07 23:59 | disposition home or self-care (01) ==
LOC: LAB 12:29
PROVIDERS: ATTEND Family Medicine
DX: E87.6 Hypokalemia (principal)
CPT/HCPCS: 36415; 80048